=== PATIENT | male | born 1995 ===

== ENCOUNTER 2020-06-25 08:13 | Outpatient (REF) | payer MEDICAID, SELFPAY | END 2020-06-25 08:14 | disposition home or self-care (01) | LOC: HO.LAB 08:13 | PROVIDERS: PCP Family Medicine; Visit Provider Internal Medicine | DX: Z20.828 Contact with and (suspected) exposure to other viral communicable diseases (principal) | CPT/HCPCS: C9803; U0003 ==

== ENCOUNTER 2020-08-19 14:56 | Outpatient (REF) | payer MEDICAID, SELFPAY | END 2020-08-19 14:57 | disposition home or self-care (01) | LOC: HO.LAB 14:56 | PROVIDERS: PCP Family Medicine; Visit Provider Internal Medicine | DX: Z20.822 Contact with and (suspected) exposure to COVID-19 (principal) | CPT/HCPCS: 36415; C9803; U0003; U0005 ==

== ENCOUNTER 2022-10-10 19:07 | Emergency (ER) | payer MEDICAID, SELFPAY ==
--- NOTE | ~2022-10-10 | XR_ITS ---
EXAMINATION: XR HAND, RIGHT CLINICAL INFORMATION: Right thumb swelling. COMPARISON: None available. TECHNIQUE: PA, lateral, and oblique views of the right hand. FINDINGS: There is mild soft tissue swelling of right thumb but no bony erosive changes or periosteal elevation seen. No acute fracture. Alignment is anatomic. Joint spaces are maintained. No erosions or soft tissue calcifications. XR/XR hand RT 2V IMPRESSION: Mild soft tissue swelling of right thumb. No visible acute fracture, dislocation or subluxation seen. Mild soft tissue swelling involving the right thumb but no bony erosive changes.
[2022-10-10 19:46] VITALS: BP 124/82; PULSE 74; RESP 18; TEMP 37.3; O2SAT 97; BMI 26.9
--- NOTE | 2022-10-10 19:49 | ED_ITS ---
HPI - General Adult General Chief complaint: Wound/Laceration <SONAL Caballero - Last Filed: 10/23/22 11:32> Stated complaint: dog bite right thumb 10/08 <SONAL Caballero - Last Filed: 10/23/22 11:32> Time Seen by Provider: 10/10/22 20:01 <SONAL Caballero - Last Filed: 10/23/22 11:32> Source: patient <SONAL Olvera - Last Filed: 10/10/22 22:57> Mode of arrival: ambulatory <SONAL Olvera - Last Filed: 10/10/22 22:57> Limitations: no limitations <SONAL Olvera Last Filed: 10/10/22 22:57> History of Present Illness HPI narrative: This is a 27-year-old male to female transgender presenting to the emergency department for evaluation of laceration to right thumb that has become infected per patient. Laceration occurred 2 days ago while they were trying to break up a fight between assure wall when a pit bull. Reports that they got bit by the pit bull, unclear vaccination status. Reports that the right thumb has become painful to move, swollen, red and warm. Up-to-date on tetanus shot. Has been cleaning it with peroxide. Denies fevers, chills, numbness, tingling, headache, vision changes, dizziness, weakness, chest pain, shortness of breath. <SONAL Olvera - Last Filed: 10/10/22 22:57> Related Data Home medications: Previous Rx's Medication Instructions Recorded cephalexin 500 mg tablet 500 mg PO Q6H 10 days #40 tabs 10/10/22 doxycycline hyclate 100 mg capsule 100 mg PO BID 10 days #20 caps 10/10/22 epinephrine 0.3 mg/0.3 mL 0.3 mg (0.3 mL) IM Q4H PRN 10/10/22 injection, auto-injector (EpiPen anaphylaxis #2 ea 2-Fritz) <SONAL Caballero Last Filed: 10/23/22 11:32> Allergies/adverse reactions: Allergies Allergy/AdvReac Type Severity Reaction Status Date / Time vancomycin Allergy Hives Verified 10/10/22 22:31 <SONAL Caballero - Last Filed: 10/23/22 11:32> Review of Systems Review of Systems: Constitutional : No Fever, No Chills, Cardiovascular : No Chest Pain, No SOB Respiratory : No Dyspnea Gastrointestinal : No abdominal pain Musculoskeletal : No Joint Swelling Skin : No rash, positive skin laceration Neuro : No Weakness, No Numbness Psych : No SI/HI <SONAL Olvera - Last Filed: 10/10/22 22:57> Yes all other systems are reviewed and are negative <SONAL Olvera - Last Filed: 10/10/22 22:57> [facility] Past Medical History Attestation statement: The following information was validated with the patient. <SONAL Olvera - Last Filed: 10/10/22 22:57> Source: old records reviewed and nursing notes reviewed <SONAL Olvera - Last Filed: 10/10/22 22:57> Social History Social History: Social History Advance Directives: No Advance Directives Information Provided: No <SONAL Caballero - Last Filed: 10/23/22 11:32> Physical Exam ED Vital Signs: Vital Signs - 24 hr 10/10/22 19:46 Temperature 99.2 F Pulse Rate 74 Respiratory Rate 18 Blood Pressure 124/82 Pulse Oximetry 97 Oxygen Delivery Method Room Air BMI result Body Mass Index 26.9 <SONAL Caballero - Last Filed: 10/23/22 11:32> Vital Signs - 24 hr 10/10/22 19:46 Temperature 99.2 F Pulse Rate 74 Respiratory Rate 18 Blood Pressure 124/82 Pulse Oximetry 97 Oxygen Delivery Method Room Air BMI result Body Mass Index 26.9 vss <SONAL Olvera - Last Filed: 10/10/22 22:57> Appearance: Alert.? Oriented X3.? No acute distress.? Head: Normocephalic, atraumatic, no step-offs or deformities Eyes: Pupils equal, round and reactive to light.? ENT: Pharynx normal.? Neck: Normal inspection.? Neck supple.? CVS: Normal heart rate and rhythm.? Pulses normal.? Respiratory: No respiratory distress.? Breath sounds normal.? Abdomen: Soft and nontender.? Skin: Skin warm and dry.? Normal skin color.? Normal skin turgor.?+ there is a 2 cm laceration to the fat pad of right thumb a that appears to be infected with overlying erythema, edema, warmth. Patient reports they are unable to bend the right thumb due to pain. No streaking noted. 2+ radial pulses equal bilateral. Capillary refill less than 2 seconds to bilateral upper extremity digits. Full range of motion to wrists bilaterally. Extremities: No lower extremity edema.? No calf ttp. 5/5 strength to bilateral upper and lower extremities Neuro: Oriented X 3.? No motor deficit.? No sensory deficit. CN 2-12 intact <SONAL Olvera - Last Filed: 10/10/22 22:57> Course Course Course Narrative: RME: 27 yold female preesnts to the ED for right thumb pain after being bitten by stray dog two days ago. Now thumb is red, swollen, and with slight pus. Patient unasare of stray rabies vaccine status. basic labs ordered. RIght hand xray ordered. RIght thumb looks infected. <SONAL Caballero - Last Filed: 10/23/22 11:32> Reevaluation(s) Reevaluation #1: X-ray of right hand with mild soft tissue swelling of right thumb. No visible fractures. Mild soft tissue swelling involving the right thumb but no bony erosive changes. CBC with leukocytosis 13.4, chemistry without acute electrolyte abnormalities requiring intervention. Patient's bilirubin 1.4 however no abdominal tenderness to palpation. <SONAL Olvera - Last Filed: 10/10/22 22:57> Time: 21:08 <SONAL Olvera - Last Filed: 10/10/22 22:57> Reevaluation #2: Patient states that he found out that the dog is vaccinated with me that they will confirm tomorrow. Does not want to start rabies series today, I verbalize risks versus benefits. Patient verbalizes understanding. I did suggest hospital admission due to location, labs, physical exam and concerns for possible septic joint however patient adamant that they would like to go home, they state that after work tomorrow morning, and that they do not want to stay in the hospital. They verbalize risks versus benefits including worsening condition, pain, sepsis, , threatened limb. Will be signing out against medical advice. Doxycycline and Keflex sent to pharmacy. <SONAL Olvera - Last Filed: 10/10/22 22:57> Time: 22:13 <SONAL Olvera - Last Filed: 10/10/22 22:57> Reevaluation #3: Patient reported allergic reaction to vanco, IV Benadryl was given, broke out in skin rash. Advised to stay for observation patient again refusing. Will call an EpiPen to patient's pharmacy. Explained to him how EpiPen should be used. Verbalizes understanding. EpiPen sent to pharmacy. <SONAL Olvera - Last Filed: 10/10/22 22:57> Time: 22:57 <SONAL Olvera - Last Filed: 10/10/22 22:57> Medications Administered Discontinued Medications Generic Name Dose Route Start Last Admin Trade Name Freq PRN Reason Stop Dose Admin Diphenhydramine HCl 50 mg 10/10/22 22:17 10/10/22 22:29 Diphenhydramine Hcl 50 Mg/Ml Vial IVPUSH 10/10/22 22:18 50 mg ONCE ONE Administration Famotidine 20 mg 10/10/22 22:17 10/10/22 22:32 Famotidine/Pf 20 Mg/2 Ml Vial IVPUSH 10/10/22 22:18 20 mg ONCE ONE Administration Vancomycin HCl 1,000 mg/ 535 mls @ 267.5 mls/hr 10/10/22 20:51 10/10/22 22:30 Vancomycin HCl 750 mg/ Sodium IV 10/10/22 22:50 0 mls/hr Chloride ONCE ONE Infusion Piperacillin Sod/Tazobactam 50 mls @ 100 mls/hr 10/10/22 20:51 10/10/22 22:28 Sod 3.375 gm/ Sodium Chloride IV 10/10/22 21:20 100 mls/hr ONCE ONE Administration <SONAL Caballero - Last Filed: 10/23/22 11:32> Medications Administered Discontinued Medications Generic Name Dose Route Start Last Admin Trade Name Freq PRN Reason Stop Dose Admin Diphenhydramine HCl 50 mg 10/10/22 22:17 10/10/22 22:29 Diphenhydramine Hcl 50 Mg/Ml Vial IVPUSH 10/10/22 22:18 50 mg ONCE ONE Administration Famotidine 20 mg 10/10/22 22:17 10/10/22 22:32 Famotidine/Pf 20 Mg/2 Ml Vial IVPUSH 10/10/22 22:18 20 mg ONCE ONE Administration Vancomycin HCl 1,000 mg/ 535 mls @ 267.5 mls/hr 10/10/22 20:51 10/10/22 22:30 Vancomycin HCl 750 mg/ Sodium IV 10/10/22 22:50 0 mls/hr Chloride ONCE ONE Infusion Piperacillin Sod/Tazobactam 50 mls @ 100 mls/hr 10/10/22 20:51 10/10/22 22:28 Sod 3.375 gm/ Sodium Chloride IV 10/10/22 21:20 100 mls/hr ONCE ONE Administration <SONAL Olvera - Last Filed: 10/10/22 22:57> Medical Decision Making Medical Decision Making [facility] Narrative: 2049 27-year-old transgender female presents for evaluation of right some pain status post getting bit by an unknown dog 2 days ago unable to bend right thumb. Up-to-date on tetanus shot. Denies numbness, tingling, fevers and chills. Physical exam significant for there is a 2 cm laceration to the fat pad of right thumb a that appears to be infected with overlying erythema, edema, warmth. Patient reports they are unable to bend the right thumb due to pain. No streaking noted. 2+ radial pulses equal bilateral. Capillary refill less than 2 seconds to bilateral upper extremity digits. Full range of motion to wrists bilaterally. Likely infected laceration/dog bite and there is some concern for septic joint as patient is unable to bend his right thumb. There is overlying erythema. No signs of neurovascular compromise. Also some concern for osteomyelitis. Secondary healing already in place will not suture the laceration risks outweigh benefits. Plan at this time imaging, labs, blood cultures, lactic acid, vanco and Zosyn. <SONAL Olvera - Last Filed: 10/10/22 22:57> Differential Diagnosis Differential Diagnoses: The differential diagnosis associated with the presentation includes <SONAL Olvera - Last Filed: 10/10/22 22:57> Likely infected laceration/dog bite and there is some concern for septic joint as patient is unable to bend his right thumb. There is overlying erythema. No signs of neurovascular compromise. Also some concern for osteomyelitis. <SONAL Olvera - Last Filed: 10/10/22 22:57> Admission/Observation Consideration of admission/observation: Escalation of care including admission/observation considered <SONAL Olvera Last Filed: 10/10/22 22:57> Likely indicated <SONAL Olvera Last Filed: 10/10/22 22:57> Lab Data MDM Lab Attestation statement: I reviewed the patient's lab results. <SONAL Olvera - Last Filed: 10/10/22 22:57> Result Diagrams: 10/10/22 20:05 10/10/22 20:05 <SONAL Caballero - Last Filed: 10/23/22 11:32> Labs: Lab Results 10/10/22 10/10/22 10/10/22 Range/Units 20:05 20:05 21:28 WBC 13.4 H (4.8-10.8) X10*3/uL RBC 5.00 (4.20-5.50) X10*6/uL Hgb 15.1 (12.0-16.0) g/dl Hct 44.7 (37.0-47.0) % MCV 89.4 (80.0-98.0) fL MCH 30.2 (27.0-33.0) pg MCHC 33.8 (31.0-35.0) g/dl RDW 12.6 (11.0-16.0) % Plt Count 252 (160-400) X10*3/uL MPV 9.9 (9.4-12.3) fL Immature Gran % (Auto) 0.3 (0.0-0.4) % Neut % (Auto) 73.4 H (45-73) % Lymph % (Auto) 18.1 L (20-40) % Barnwell % (Auto) 6.0 (2-11) % Eos % (Auto) 1.8 (0-4) % Baso % (Auto) 0.4 (0-2) % Lymph # (Auto) 2.4 (1.2-4.9) X10*3/uL Barnwell # (Auto) 0.8 (0.1-1.2) X10*3/uL Eos # (Auto) 0.2 (0.0-0.4) X10*3/uL Baso # (Auto) 0.1 (0.0-0.2) X10*3/uL Abs Immat Gran (auto) 0.04 H (0.00-0.03) X10*3/uL Absolute Neuts (auto) 9.9 H (2.0-8.3) x10*3/uL Absolute Nucleated RBC 0.000 (0.0-0.012) X10*3/uL Nucleated RBC % (auto) 0.0 (0.0-0.2) /100WBC ESR (0-20) MM/HR Sodium 135 (135-145) mmol/L Potassium 5.0 (3.3-5.1) mmol/L Chloride 105 (96-108) mmol/L Carbon Dioxide 20 L (22-29) mmol/L Anion Gap 15 (12-20) BUN 8 L (9-16) mg/dL Creatinine 0.76 (0.5-1.4) mg/dL Estim Creat Clear Calc 105.4 Estimated GFR > 60 Random Glucose 82 (60-115) mg/dL Lactic Acid 0.8 (0.5-2.0) mmol/L Calcium 9.5 (8.4-10.2) mg/dL Total Bilirubin 1.4 H (0.0-1.0) mg/dL AST 30 (5-31) U/L ALT 15 (0-31) U/L Alkaline Phosphatase 45 (39-117) U/L C-Reactive Protein 1.05 H (< or = 0.50) mg/dL Total Protein 8.1 H (6.5-8.0) g/dL Albumin 4.9 (3.5-5.0) g/dL 10/10/ Range/Units 21:28 WBC (4.8-10.8) X10*3/uL RBC (4.20-5.50) X10*6/uL Hgb (12.0-16.0) g/dl Hct (37.0-47.0) % MCV (80.0-98.0) fL MCH (27.0-33.0) pg MCHC (31.0-35.0) g/dl RDW (11.0-16.0) % Plt Count (160-400) X10*3/uL MPV (9.4-12.3) fL Immature Gran % (Auto) (0.0-0.4) % Neut % (Auto) (45-73) % Lymph % (Auto) (20-40) % Barnwell % (Auto) (2-11) % Eos % (Auto) (0-4) % Baso % (Auto) (0-2) % Lymph # (Auto) (1.2-4.9) X10*3/uL Barnwell # (Auto) (0.1-1.2) X10*3/uL Eos # (Auto) (0.0-0.4) X10*3/uL Baso # (Auto) (0.0-0.2) X10*3/uL Abs Immat Gran (auto) (0.00-0.03) X10*3/uL Absolute Neuts (auto) (2.0-8.3) x10*3/uL Absolute Nucleated RBC (0.0-0.012) X10*3/uL Nucleated RBC % (auto) (0.0-0.2) /100WBC ESR 5 (0-20) MM/HR Sodium (135-145) mmol/L Potassium (3.3-5.1) mmol/L Chloride (96-108) mmol/L Carbon Dioxide (22-29) mmol/L Anion Gap (12-20) BUN (9-16) mg/dL Creatinine (0.5-1.4) mg/dL Estim Creat Clear Calc Estimated GFR Random Glucose (60-115) mg/dL Lactic Acid (0.5-2.0) mmol/L Calcium (8.4-10.2) mg/dL Total Bilirubin (0.0-1.0) mg/dL AST (5-31) U/L ALT (0-31) U/L Alkaline Phosphatase (39-117) U/L C-Reactive Protein (< or = 0.50) mg/dL Total Protein (6.5-8.0) g/dL Albumin (3.5-5.0) g/dL <SONAL Caballero - Last Filed: 10/23/22 11:32> Lab Results 10/10/22 10/10/22 10/10/22 Range/Units 20:05 20:05 21:28 WBC 13.4 H (4.8-10.8) X10*3/uL RBC 5.00 (4.20-5.50) X10*6/uL Hgb 15.1 (12.0-16.0) g/dl Hct 44.7 (37.0-47.0) % MCV 89.4 (80.0-98.0) fL MCH 30.2 (27.0-33.0) pg MCHC 33.8 (31.0-35.0) g/dl RDW 12.6 (11.0-16.0) % Plt Count 252 (160-400) X10*3/uL MPV 9.9 (9.4-12.3) fL Immature Gran % (Auto) 0.3 (0.0-0.4) % Neut % (Auto) 73.4 H (45-73) % Lymph % (Auto) 18.1 L (20-40) % Barnwell % (Auto) 6.0 (2-11) % Eos % (Auto) 1.8 (0-4) % Baso % (Auto) 0.4 (0-2) % Lymph # (Auto) 2.4 (1.2-4.9) X10*3/uL Barnwell # (Auto) 0.8 (0.1-1.2) X10*3/uL Eos # (Auto) 0.2 (0.0-0.4) X10*3/uL Baso # (Auto) 0.1 (0.0-0.2) X10*3/uL Abs Immat Gran (auto) 0.04 H (0.00-0.03) X10*3/uL Absolute Neuts (auto) 9.9 H (2.0-8.3) x10*3/uL Absolute Nucleated RBC 0.000 (0.0-0.012) X10*3/uL Nucleated RBC % (auto) 0.0 (0.0-0.2) /100WBC ESR (0-20) MM/HR Sodium 135 (135-145) mmol/L Potassium 5.0 (3.3-5.1) mmol/L Chloride 105 (96-108) mmol/L Carbon Dioxide 20 L (22-29) mmol/L Anion Gap 15 (12-20) BUN 8 L (9-16) mg/dL Creatinine 0.76 (0.5-1.4) mg/dL Estim Creat Clear Calc 105.4 Estimated GFR > 60 Random Glucose 82 (60-115) mg/dL Lactic Acid 0.8 (0.5-2.0) mmol/L Calcium 9.5 (8.4-10.2) mg/dL Total Bilirubin 1.4 H (0.0-1.0) mg/dL AST 30 (5-31) U/L ALT 15 (0-31) U/L Alkaline Phosphatase 45 (39-117) U/L C-Reactive Protein 1.05 H (< or = 0.50) mg/dL Total Protein 8.1 H (6.5-8.0) g/dL Albumin 4.9 (3.5-5.0) g/dL 10/10/ Range/Units 21:28 WBC (4.8-10.8) X10*3/uL RBC (4.20-5.50) X10*6/uL Hgb (12.0-16.0) g/dl Hct (37.0-47.0) % MCV (80.0-98.0) fL MCH (27.0-33.0) pg MCHC (31.0-35.0) g/dl RDW (11.0-16.0) % Plt Count (160-400) X10*3/uL MPV (9.4-12.3) fL Immature Gran % (Auto) (0.0-0.4) % Neut % (Auto) (45-73) % Lymph % (Auto) (20-40) % Barnwell % (Auto) (2-11) % Eos % (Auto) (0-4) % Baso % (Auto) (0-2) % Lymph # (Auto) (1.2-4.9) X10*3/uL Barnwell # (Auto) (0.1-1.2) X10*3/uL Eos # (Auto) (0.0-0.4) X10*3/uL Baso # (Auto) (0.0-0.2) X10*3/uL Abs Immat Gran (auto) (0.00-0.03) X10*3/uL Absolute Neuts (auto) (2.0-8.3) x10*3/uL Absolute Nucleated RBC (0.0-0.012) X10*3/uL Nucleated RBC % (auto) (0.0-0.2) /100WBC ESR 5 (0-20) MM/HR Sodium (135-145) mmol/L Potassium (3.3-5.1) mmol/L Chloride (96-108) mmol/L Carbon Dioxide (22-29) mmol/L Anion Gap (12-20) BUN (9-16) mg/dL Creatinine (0.5-1.4) mg/dL Estim Creat Clear Calc Estimated GFR Random Glucose (60-115) mg/dL Lactic Acid (0.5-2.0) mmol/L Calcium (8.4-10.2) mg/dL Total Bilirubin (0.0-1.0) mg/dL AST (5-31) U/L ALT (0-31) U/L Alkaline Phosphatase (39-117) U/L C-Reactive Protein (< or = 0.50) mg/dL Total Protein (6.5-8.0) g/dL Albumin (3.5-5.0) g/dL <SONAL Olvera - Last Filed: 10/10/22 22:57> Independent Interpretation I performed an independent interpretation of an: Plain X-Ray (XR/XR hand RT 2V IMPRESSION: Mild soft tissue swelling of right thumb. No visible acute fracture, dislocation or subluxation seen. Mild soft tissue swelling involving the right thumb but no bony erosive changes. ) <SONAL Olvera Last Filed: 10/10/22 22:57> Radiology Impression Discussion of test interpretation with radiology: I have reviewed the radiologist's reading. <SONAL Olvera - Last Filed: 10/10/22 22:57> Core Measures AMI core measures followed: Yes <SONAL Olvera - Last Filed: 10/10/22 22:57> Measure exclusions: not indicated <SONAL Olvera - Last Filed: 10/10/22 22:57> Critical Care Time Critical Care Time Critical Care Time: No <SONAL Olvera - Last Filed: 10/10/22 22:57> Discharge Plan Discharge Clinical Impression: Infected dog bite, Cellulitis, Left against medical advice <SONAL Caballero - Last Filed: 10/23/22 11:32> Patient Disposition: Home, Self-Care <SONAL Caballero Last Filed: 10/23/22 11:32> Instructions: Animal Bite (ED), Cellulitis (ED), Rabies (ED), Against Medical Advice (ED) <SONAL Caballero - Last Filed: 10/23/22 11:32> Additional Instructions: Take your medications as prescribed. If you were prescribed antibiotics today, it is important that you take your medication to their entirety, do not skip any doses, do not finish them early. Follow-up with your primary care provider this week. Please call to schedule an appointment with hand surgeon if symptoms worsen Return to the emergency department with new or worsening symptoms. Such as fevers, chills, chest pain, shortness of breath, nausea, vomiting, dizziness, headache, vision changes, lethargy, streaking, worsening redness, swelling, numbness, tingling, swelling that is worsening, wrist pain In case of emergency call 911 You refused hospital admission for IV antibiotics. You also told me that the dog was vaccinated however you are going to confirm this tomorrow if the dog is not vaccinated you should receive the rabies series. Please return if you change your mind Risks of leaving against medical advice include Decreased quality of life, disability, worsening pain, infection/sepsis, . <SONAL Caballero - Last Filed: 10/23/22 11:32> Prescriptions: New doxycycline hyclate 100 mg capsule 100 mg PO BID 10 Days Qty: 20 0RF cephalexin 500 mg tablet 500 mg PO Q6H 10 Days Qty: 40 0RF epinephrine [EpiPen 2-Fritz] 0.3 mg/0.3 mL auto-injector 0.3 mg IM Q4H PRN (Reason: anaphylaxis) Qty: 2 0RF <SONAL Caballero - Last Filed: 10/23/22 11:32> Referrals: Padmini Brown MD [Primary Care Provider] - 2 days Kathy Chaudhari MD [Physician] - 1 day <SONAL Caballero - Last Filed: 10/23/22 11:32> Stand Alone Forms: Against Medical Advice <SONAL Caballero - Last Filed: 10/23/22 11:32> Interventions: ED Discharge Assessment Last Done: 10/10/22 22:39 <SONAL Caballero - Last Filed: 10/23/22 11:32> Discharge Date/Time: 10/10/22 22:40 <SONAL Caballero - Last Filed: 10/23/22 11:32>
[2022-10-10 20:08] LABS: MANUAL DIFF FLAG NO
[2022-10-10 20:13] LABS: Basophils Absolute Auto 0.1 X10*3/uL (0.0-0.2); Basophils Percent Auto 0.4 % (0-2); Eosinophils Absolute Auto 0.2 X10*3/uL (0.0-0.4); Eosinophils Percent Auto 1.8 % (0-4); Hematocrit 44.7 % (37.0-47.0); Hemoglobin 15.1 g/dl (12.0-16.0); Imm Gran Abs Auto 0.04 X10*3/uL (0.00-0.03); Imm Gran Pct Auto 0.3 % (0.0-0.4); Lymphocytes Absolute Auto 2.4 X10*3/uL (1.2-4.9); Lymphocytes Percent Auto 18.1 % (20-40); Mean Corpuscular HGB Conc 33.8 g/dl (31.0-35.0); Mean Corpuscular Hemoglobin 30.2 pg (27.0-33.0); Mean Corpuscular Volume 89.4 fL (80.0-98.0); Mean Platelet Volume 9.9 fL (9.4-12.3); Monocytes Absolute Auto 0.8 X10*3/uL (0.1-1.2); Neutrophils Absolute Auto 9.9 x10*3/uL (2.0-8.3); Neutrophils Percent Auto 73.4 % (45-73); Platelet Count 252 X10*3/uL (160-400); Red Cell Distribution Width 12.6 % (11.0-16.0); White Blood Count 13.4 X10*3/uL (4.8-10.8)
[2022-10-10 20:49] LABS: Alanine Aminotransferase 15 U/L (0-31); Albumin Level 4.9 g/dL (3.5-5.0); Alkaline Phosphatase 45 U/L (39-117); Anion Gap 15 (12-20); Aspartate Amino Transferase 30 U/L (5-31); Bilirubin Total 1.4 mg/dL (0.0-1.0); Blood Urea Nitrogen 8 mg/dL (9-16); Calcium 9.5 mg/dL (8.4-10.2); Carbon Dioxide 20 mmol/L (22-29); Chloride 105 mmol/L (96-108); Creatinine Clr Calc Pharmacy 105.4; Estimated Glomerular Filt Rate > 60; Glucose Random 82 mg/dL (60-115); Sodium 135 mmol/L (135-145); Total Protein 8.1 g/dL (6.5-8.0)
[2022-10-10 21:21] LABS: C Reactive Protein 1.05 mg/dL (< or = 0.50)
[2022-10-10] MEDS: vancomycin HCL 1,000 MG, vancomycin HCL 750 MG in 0.9 % Sodium Chloride 500 ML 267.5 MG IV (21:41)
[2022-10-10 21:52] LABS: Lactic Acid 0.8 mmol/L (0.5-2.0)
[2022-10-10 22:20] LABS: Erythrocyte Sedimentation Rate 5 MM/HR (0-20)
[2022-10-10] MEDS: Piperacillin Sodium/Tazobactam 3.375 GM in 0.9 % Sodium Chloride 50 ML IV (22:28)
[2022-10-10] MEDS: diphenhydrAMINE HCL 50 MG/ML VIAL IVPUSH (22:29)
[2022-10-10] MEDS: Famotidine/PF 20 MG/2 ML VIAL IVPUSH (22:32)
--- NOTE | 2022-10-10 22:57 | PC.NURSE ---
Patient had c/o itching started scratching head and body started when vancomycin was infusing stopped antibiotic and notified Kylee PRUITT. Ordered iv push benadryl 50 mg stopped itching shortly after. Patient got 2nd antibiotic did not want to stay because 2nd anniversary. Patient decided wanted to leave AMA. Signed against medical advice paperwork.
== END 2022-10-10 22:40 | disposition home or self-care (01) ==
PROVIDERS: Physician Assistant; Emergency Provider Emergency Medicine Emergency Medical Services; PCP Family Medicine
DX: S61.051A Open bite of right thumb without damage to nail, initial encounter (principal); L03.011 Cellulitis of right finger; W54.0XXA Bitten by dog, initial encounter; Y93.9 Activity, unspecified; Y92.9 Unspecified place or not applicable; Y99.9 Unspecified external cause status; Z79.899 Other long term (current) drug therapy
CPT/HCPCS: 36415; 73120; 80053; 83605; 85025; 85652; 86140; 87040; 96365; 96375; 99283; 99284; J1200; J2543; J3370

== ENCOUNTER 2024-02-18 08:20 | Emergency (ER) | payer SELFPAY ==
[2024-02-18 08:25] VITALS: BP 145/84; PULSE 61; RESP 18; TEMP 36.8; O2SAT 97; BMI 26.1
--- NOTE | 2024-02-18 08:50 | ED_ITS ---
HPI - Dental/Oral General Chief complaint: Dental/Oral Stated complaint: Lt ear pain/jaw pain Time Seen by Provider: 02/18/24 08:38 Source: patient Mode of arrival: ambulatory Limitations: no limitations History of Present Illness ED Provider: DR. Spencer HPI Narrative: 28-year-old female came in for evaluation of left ear/left cheek /left jaw pain for 2 weeks that is getting worse patient has been taking Advil at home with no relief, patient thinks pain is originated from a cracked molar upper tooth. no fever, no chills. Related Data Previous Rx's ?Medication ?Instructions ?Recorded cephalexin 500 mg tablet 500 mg PO Q6H 10 days #40 tabs 10/10/22 doxycycline hyclate 100 mg capsule 100 mg PO BID 10 days #20 caps 10/10/22 epinephrine 0.3 mg/0.3 mL 0.3 mg (0.3 mL) IM Q4H PRN 10/10/22 injection, auto-injector (EpiPen anaphylaxis #2 ea 2-Fritz) amoxicillin 500 mg tablet 500 mg PO BID #14 tabs 02/18/24 oxycodone 5 mg tablet 5 mg PO BID PRN pain #10 tabs 02/18/24 Allergies Allergy/AdvReac Type Severity Reaction Status Date / Time vancomycin Allergy Hives Verified 02/18/24 08:28 Review of Systems 2 Review of Systems: all other systems are reviewed and are negative Constitutional: Reports as per HPI and Reports no additional constitutional complaints Eyes: Reports as per HPI and Reports no additional eye complaints Reports system reviewed and no additional complaints, except as documented Cardiovascular: Reports as per HPI and Reports no additional cardiovascular complaints Respiratory: Reports as per HPI and Reports no additional respiratory complaints Gastrointestinal: Reports as per HPI and Reports no additional gastrointestinal complaints Genitourinary: Reports no additional female genitourinary complaints Musculoskeletal: Reports no additional musculoskeletal complaints Skin/Breast: Reports system reviewed and no additional complaints, except as docu Psychiatric: Reports no additional psychiatric complaints Endocrine: Reports no additional endocrine complaints Hematologic/Lymphatic: Reports no additional hematologic/lymphatic complaints Allergic/Immunologic: Reports no additional allergic/immunologic complaints Reports system reviewed and no additional complaints, except as documented and Reports Abnormal speech present [facility] Social History Social History Advance Directives: No Advance Directives Information Provided: Yes Physical Exam 2 Vital Signs: Vital Signs: Last Vital Signs Temp 98.3 F 02/18/24 08:25 Pulse 61 02/18/24 08:25 Resp 18 02/18/24 08:25 BP 145/84 H 02/18/24 08:25 Pulse Ox 97 02/18/24 08:25 O2 Del Method Room Air 02/18/24 08:25 BMI result Body Mass Index 26.1 Vital signs have been reviewed and appear to be correct. Blood pressure elevated. Heart rate normal. Respiratory rate normal. Temperature normal. Oxygen saturation normal. Appearance: Alert. Oriented X3. No acute distress. Head: Normal external exam. Normocephalic. Atraumatic. No Ly signs noted. No raccoon eyes noted Eyes: PERRLA. EOMI. Conjunctiva and sclera normal. Eyelids normal. ENT: TM's Normal. Pharynx normal. Uvula midline. Moist mucous membranes. No trismus noted. No drooling noted. No muffled voice noted. Neck: Normal inspection. Neck supple. FROM. No adenopathy. Thyroid Normal. No meningeal signs. No neck mass noted. CVS: Normal heart rate and rhythm. Heart sound normal. No murmurs noted. Pulses normal throughout. Respiratory: No respiratory distress. Painless inspiration. Breath sounds normal. No wheezes/rales/rhonchi noted. Chest nontender. No accessory muscle usage noted or decreased air movement noted. Abdomen: Soft and nontender. Bowel sounds normal in all 4 quadrants. No distention noted. No organomegaly noted. No visible injury noted. Back: No CVA tenderness. Full range of motion noted. Skin: Skin warm and dry. Normal skin color. Normal skin turgor. No rashes/lesions/lacerations noted. Extremities: No lower extremity edema. Extremities exhibit normal range of motion. Extremities nontender. Neuro: Oriented X 3. Cranial nerve exam: II-XII are grossly intact No motor deficit. No sensory deficit. Reflexes normal. HEENT: Teeth image: 1. cracked, tender to touch, swelling of the gum surrounding it, no abscess , no fluctuation. Course Reevaluation(s) Reevaluation #1: Left facial pain secondary to dental pain and infection will start on amoxicillin and oxycodone patient was instructed to see a dentist. Time: 08:54 Medical Decision Making Differential Diagnosis Differential Diagnoses: The differential diagnosis associated with the presentation includes ( left ear infection, TMJ, dental abscess, dental infection, dental ache.) Admission/Observation Consideration of admission/observation: Escalation of care including admission/observation considered Discharge Plan Discharge Clinical Impression: Toothache, Gingivitis Patient Disposition: Home, Self-Care Instructions: Gingivitis (ED) Additional Instructions: follow-up with your dentist as soon as you can. Prescriptions: New amoxicillin 500 mg tablet 500 mg PO BID Qty: 14 0RF oxycodone 5 mg tablet 5 mg PO BID PRN (Reason: pain) Qty: 10 0RF Rx Instructions: Partial Fill upon patient request. No Action doxycycline hyclate 100 mg capsule 100 mg PO BID 10 Days Qty: 20 0RF cephalexin 500 mg tablet 500 mg PO Q6H 10 Days Qty: 40 0RF epinephrine [EpiPen 2-Fritz] 0.3 mg/0.3 mL auto-injector 0.3 mg IM Q4H PRN (Reason: anaphylaxis) Qty: 2 0RF Referrals: Padmini Brown MD [Primary Care Provider] - Print Language: Syriac
[2024-02-18] MEDS: Amoxicillin 500 MG CAPSULE PO (09:09)
[2024-02-18] MEDS: oxyCODONE HCl Immed Release 5 MG TABLET PO (09:09)
[2024-02-18 09:10] VITALS: BP 145/96; PULSE 61; RESP 18; TEMP 36.4; O2SAT 98
== END 2024-02-18 09:16 | disposition home or self-care (01) ==
PROVIDERS: Emergency Provider Emergency Medicine; PCP Family Medicine
DX: K05.10 Chronic gingivitis, plaque induced (principal)
CPT/HCPCS: 99283